=== PATIENT | female | born 1975 ===

== ENCOUNTER 2017-08-04 07:34 | Emergency (ER) | payer OTHER, SELFPAY ==
[2017-08-04 07:34] VITALS: BMI 46.5
[2017-08-04 07:47] VITALS: RESP 18
[2017-08-04 08:28] LABS: RBC URINE 5 /hpf (0-3); URINE BILIRUBIN NEGATIVE (NEGATIVE); URINE BLOOD 1+ (NEGATIVE); URINE COLOR Yellow (YELLOW); URINE GLUCOSE (UA) NORMAL (Normal); URINE KETONE NEGATIVE (NEGATIVE); URINE LEUKOCYTE ESTERASE TRACE Leu/uL (Negative); URINE PROTEIN NEGATIVE (NEGATIVE); URINE UROBILINOGEN NORMAL mg/dL (0.2-1.0); WBC URINE 2 /hpf (0-5)
[2017-08-04] MEDS ORDERED: Amoxicillin-Clav 875-125 mg Tab PO STA (08:35)
[2017-08-04 08:44] LABS: BASO % 0.5 % (0.0-2.0); EOS # 0.2 K/uL (0.0-0.7); EOS % 2.8 % (0.0-4.0); LYMPH # 2.2 K/uL (1.0-4.3); LYMPH % 40.2 % (20.0-40.0); MEAN CELL VOLUME 87.7 fL (81.0-99.0); MEAN CORPUSCULAR HEMOGLOBIN 29.9 pg (27.0-31.0); MEAN CORPUSCULAR HGB CONC 34.1 g/dL (33.0-37.0); MEAN PLATELET VOLUME 7.7 fL (7.2-11.7); MONO # 0.5 K/uL (0.0-0.8); MONO % 9.7 % (0.0-10.0); RED CELL DISTRIBUTION WIDTH 14.8 % (11.5-14.5); WHITE BLOOD COUNT 5.5 K/uL (4.8-10.8)
[2017-08-04] MEDS ORDERED: Amoxicillin-Clav 875-125 mg Tab PO ONE (08:46)
--- NOTE | 2017-08-04 08:49 | C.PDOC ---
History Of Present Illness 42 y/o female with PMHx of liver cyst and Gallbladder disease presents to ED with complaints of abdominal pain. Patient had a Rinku Martínez placed on for fluid drainage and is pending surgery. Patient denies fever, chills, nausea, vomiting or any other complaints at this time. Time Seen by Provider: 08/04/17 07:35 Chief Complaint (Nursing): Abdominal Pain History Per: Patient History/Exam Limitations: no limitations Onset/Duration Of Symptoms: Days Current Symptoms Are (Timing): Still Present Associated Symptoms: denies: Fever, Chills, Nausea, Vomiting Past Medical History Reviewed: Historical Data, Nursing Documentation, Vital Signs Vital Signs: Last Vital Signs Temp 97.9 F 08/04/17 10:03 Pulse 63 08/04/17 10:03 Resp 18 08/04/17 10:03 BP 109/75 08/04/17 10:03 Pulse Ox 99 08/04/17 10:03 - Medical History PMH: Gall Bladder Disease (PENDING SX) Family History: States: Unknown Family Hx - Social History Hx Alcohol Use: No Hx Substance Use: No - Immunization History Hx Tetanus Toxoid Vaccination: No Hx Influenza Vaccination: Yes (05/2017) Hx Pneumococcal Vaccination: No Review Of Systems Constitutional: Negative for: Fever, Chills Gastrointestinal: Positive for: Abdominal Pain. Negative for: Nausea, Vomiting , Diarrhea Genitourinary: Negative for: Dysuria, Hematuria Musculoskeletal: Negative for: Back Pain Skin: Negative for: Rash Physical Exam - Physical Exam Appears: Non-toxic, No Acute Distress Skin: Normal Color, Warm, Dry, No Rash Head: Atraumatic, Normacephalic Oral Mucosa: Moist Neck: Normal ROM, Supple Chest: Symmetrical Cardiovascular: Rhythm Regular Respiratory: Normal Breath Sounds, No Rales, No Rhonchi, No Wheezing Gastrointestinal/Abdominal: Soft, Tenderness (Around drain site ), No Guarding, No Rebound, Other (AVTAR drain to right abdomen) Back: No CVA Tenderness Neurological/Psych: Oriented x3 ED Course And Treatment - Laboratory Results Result Diagrams: 08/04/17 08:31 08/04/17 08:31 Lab Interpretation: Normal O2 Sat by Pulse Oximetry: 98 (RA) Pulse Ox Interpretation: Normal Progress Note: Dressing changed. Case discussed with surgical rn who evaluated patient at bedside. Case discussed with Dr Hernández who request discharge with augmentin and flagyl and follow up tomorrow at his office. Treated with augmentin and flagyl. On re-evaluation abdomen soft non-tender - Physician Consult Information Physician Contacted: Waldo Campbell Outcome Of Conversation: discharge and follow up in office tomorrow Medical Decision Making Medical Decision Making: Plan: Antibiotics Progress: Discussed with Dr. Campbell, agreed to start 1st dose of Flagyl and Augmentin, and discharge patient with prescriptions Patient is to follow up with at office and is pending clearance by Liver Specialist. Disposition Discussed With Dr.: Waldo Campbell Doctor Will See Patient In The: Office - Disposition Referrals: Waldo Campbell MD [Staff Provider] - Disposition: HOME/ ROUTINE Disposition Time: 12:00 Condition: STABLE Additional Instructions: Follow up with surgeon tomorrow for further evaluation Return to ED if any increase symptoms Prescriptions: Amoxicillin/Clavulanate [Augmentin 875 MG-125 MG] 1 tab PO BID #14 tab Metronidazole [Flagyl] 500 mg PO Q8 #21 tab Instructions: Abdominal Pain (ED) Forms: [id number] (Danish) Print Language: [place] - POA Present On Arrival: None - Clinical Impression Clinical Impression: Abdominal pain - PA / SPORTS PHYSICAL THERAPIST / Resident Statement MD/DO has reviewed & agrees with the documentation as recorded. - Scribe Statement The provider has reviewed the documentation as recorded by the Efrenibedd Monge All medical record entries made by the Priscilla were at my direction and personally dictated by me. I have reviewed the chart and agree that the record accurately reflects my personal performance of the history, physical exam, medical decision making, and the department course for this patient. I have also personally directed, reviewed, and agree with the discharge instructions and disposition.
[2017-08-04 09:01] LABS: CHLORIDE 102 mmol/L (98-107)
[2017-08-04 09:02] LABS: POTASSIUM 4.1 mmol/L (3.6-5.2); SODIUM 134 mmol/L (132-148)
[2017-08-04 09:04] LABS: ALKALINE PHOSPHATASE 110 U/L (38-126); AST/SGOT 53 U/L (14-36); BILIRUBIN,TOTAL 0.9 mg/dL (0.2-1.3); BLOOD UREA NITROGEN 11 mg/dL (7-17); CARBON DIOXIDE 23 mmol/L (22-30); GFR AFRICAN-AMERICAN > 60; TOTAL PROTEIN 8.1 g/dL (6.3-8.3)
[2017-08-04 09:05] LABS: ALT/SGPT 71 U/L (9-52); CALCIUM 8.9 mg/dl (8.6-10.4); GLUCOSE,RANDOM 118 mg/dL (65-105)
[2017-08-04 09:11] LABS: ALB/GLOB RATIO 0.8 (1.0-2.1)
[2017-08-04 10:03] VITALS: BP 109/75; PULSE 63; TEMP 97.9
[2017-08-04 15:30] VITALS: O2SAT 98
== END 2017-08-04 10:06 | disposition home or self-care (01) ==
LOC: C.ER 07:34
DX: R10.9 Unspecified abdominal pain (principal)